=== PATIENT | male | born 1990 | race African-American/Black ===

== ENCOUNTER 2022-01-04 15:04 | Emergency (ER) | payer MEDICAID ==
[~2022-01-04] VITALS: Ht 195.6 cm; Wt 109.0 kg
[2022-01-04] MEDS ORDERED: PREDNISONE 20MG TABLET PO ONE (18:45)
[2022-01-04] MEDS ORDERED: IPRATROPIUM/ALBUTEROL 0.5-3(2.5)MG/3ML NEB HHN ONE (18:45)
[2022-01-04] MEDS ORDERED: P20 MT (19:25)
[2022-01-04] MEDS ORDERED: ALBU6.7H9 INH (19:25)
[2022-01-04] MEDS ORDERED: IPRATROPIUM/ALBUTEROL 0.5-3(2.5)MG/3ML NEB ONE (20:01)
[2022-01-04 21:38] VITALS: BP 125/76
== END 2022-01-04 21:41 | disposition home or self-care (01) ==
LOC: ER 16:13
DX: R05.9 Cough, unspecified (principal); J45.909 Unspecified asthma, uncomplicated
CPT/HCPCS: 71045; 93005; 94640; 99284; J7512; Z7610